=== PATIENT | female | born 1945 | race Caucasian/White ===

== ENCOUNTER 2016-12-28 05:44 | Observation (INO) | payer MEDICARE, OTHER ==
[~2016-12-28] VITALS: Ht 160 cm; Wt 79.0 kg
[~2016-12-28 05:44] MED LIST: AMLO10TA2 PO; BYSTOLIC2.5 MG PO; CRESTOR20 MG PO; GABA600T2 PO; METF10002 PO; SITA100T PO; VALS40TA2 PO
[2016-12-28] MEDS ORDERED: IV RINGERS,LACTATED 1000ML 1,000 ML IV SCH (06:15)
[2016-12-28] MEDS ORDERED: FENTANYL PF 100 MCG/2 ML VIAL. IV PRN ×2 (06:15→10:15)
[2016-12-28] MEDS ORDERED: ONDANSETRON PF 4 MG/2 ML VIAL. IV ONE (06:15)
--- NOTE | 2016-12-28 06:18 | ED.ADGEN ---
Adult General Chief Complaint Chief Complaint: DIARRHEA HPI HPI Patient is a 71 year old woman, history of hypertension and type 2 diabetes mellitus, who presents to the emergency department with a complaint of abdominal pain and loose watery stool 1 week. Patient states that initially the stool was greenish in color, now she states it is "just water", is experiencing 5-7 episodes of stool daily, along with cramping abdominal pain, and nausea. No vomiting, denies any fevers, any chills, any chest pain, shortness breath, any recent travel, any history of surgery, any recent antibiotic use or exposures. No similar symptoms in the family members. Patient states she saw her doctor on Thursday, that time was prescribed Imodium, which she has been taking once daily, without relief. Has been compliant with her medications. Denies any injuries or other complaints. Review of Systems Review of Systems Constitutional: Denies fever or chills. [] Eyes: Denies change in visual acuity. [] HENT: Denies nasal congestion or sore throat. [] Respiratory: Denies cough or shortness of breath. [] Cardiovascular: Denies chest pain or edema. [] GI: Abdominal pain, cramping, located in the epigastrium to the lower quadrants , associated nausea, diarrhea, no bloody stools or emesis. : Denies dysuria. [] Musculoskeletal: Denies back pain or joint pain. [] Integument: Denies rash. [] Neurologic: Denies headache, focal weakness or sensory changes. [] Endocrine: Denies polyuria or polydipsia. [] Lymphatic: Denies swollen glands. [] Psychiatric: Denies depression or anxiety. [] Current Medications Current Medications Current Medications Medications (Trade) Dose Ordered Sig/Osbaldo Start Time Stop Time Status Last Admin Dose Admin Fentanyl Citrate 25 mcg 25 mcg PRN Q15MIN PRN 12/28/16 06:15 12/29/16 06:14 Info (Do NOT chart on this entry -- for MONITORING) 1 each PRN DAILY PRN 12/28/16 07:15 12/30/16 07:14 Iohexol (Omnipaque 300 Mg/ml) 75 ml 1X ONCE 12/28/16 07:15 12/28/16 07:16 DC 12/28/16 07:15 75 ML Lactated Ringer's (Iv Lactated Ringers) 1,000 ml @ 100 mls/hr Q10H 12/28/16 06:15 12/28/16 16:14 12/28/16 07:48 100 MLS/HR Ondansetron HCl (Zofran) 4 mg 1X ONCE 12/28/16 06:15 12/28/16 06:16 DC 12/28/16 07:51 4 MG Allergies Allergies Allergies Coded Allergies Type Severity Reaction Last Updated Verified No Known Drug Allergies 05/12/16 No Physical Exam Physical Exam Constitutional: Well developed, well nourished, no acute distress, non-toxic appearance. [] HENT: Normocephalic, atraumatic, bilateral external ears normal, oropharynx moist, no oral exudates, nose normal. [] Eyes: PERRLA, EOMI, conjunctiva normal, no discharge. [] Neck: Normal range of motion, no tenderness, supple, no stridor. [] Cardiovascular:Heart rate regular rhythm, no murmur , S1, S2, no rubs or gallops. [] Lungs & Thorax: Bilateral breath sounds clear to auscultation, no wheezing, rhonchi, rales. No chest tenderness or crepitus. [] Abdomen: Bowel sounds normal, soft, diffuse tenderness to palpation, no rebound , rigidity, no guarding, no masses, no pulsatile masses. [] Skin: Warm, dry, no erythema, no rash. [] Back: No tenderness, no CVA tenderness. [] Extremities: No tenderness, no cyanosis, no clubbing, ROM intact, no edema. [] Neurologic: Alert and oriented X 3, normal motor function, normal sensory function, no focal deficits noted. [] Psychologic: Affect normal, judgement normal, mood normal. [] Current Patient Data Vital Signs Vital Signs Date Time Temp Pulse Resp B/P Pulse Ox O2 Delivery O2 Flow Rate FiO2 12/28/16 09:15 66 24 120/57 96 12/28/16 08:10 Room Air 12/28/16 06:00 97.5 97.5 Lab Values Laboratory Tests Test 12/28/16 07:16 12/28/16 07:22 Urine Collection Type Unknown Urine Color Yellow Urine Clarity Clear Urine pH 6.0 Urine Specific [place] 1.025 Urine Protein Negativemg/dL (NEG-TRACE) Urine Glucose (UA) Negativemg/dL (NEG) Urine Ketones (Stick) Negativemg/dL (NEG) Urine Blood Negative (NEG) Urine Nitrite Negative (NEG) Urine Bilirubin Small (NEG) Urine Urobilinogen Dipstick 0.2mg/dL (0.2 mg/dL) Urine Leukocyte Esterase Moderate (NEG) Urine RBC 0/HPF (0-2) Urine WBC 11-20/HPF (0-4) Urine Bacteria 0/HPF (0-FEW) Urine Hyaline Casts Many/HPF Urine Mucus Marked/LPF White Blood Count 10.9x10^3/uL (4.0-11.0) Red Blood Count 4.74x10^6/uL (3.50-5.40) Hemoglobin 14.1g/dL (12.0-15.5) Hematocrit 42.6% (36.0-47.0) Mean Corpuscular Volume 90fL (79-100) Mean Corpuscular Hemoglobin 30pg (25-35) Mean Corpuscular Hemoglobin Concent 33g/dL (31-37) Red Cell Distribution Width 12.9% (11.5-14.5) Platelet Count 174x10^3/uL (140-400) Neutrophils (%) (Auto) 65% (31-73) Lymphocytes (%) (Auto) 21% (24-48) L Monocytes (%) (Auto) 9% (0-9) Eosinophils (%) (Auto) 4% (0-3) H Basophils (%) (Auto) 1% (0-3) Neutrophils # (Auto) 7.1x10^3uL (1.8-7.7) Lymphocytes # (Auto) 2.3x10^3/uL (1.0-4.8) Monocytes # (Auto) 1.0x10^3/uL (0.0-1.1) Eosinophils # (Auto) 0.4x10^3/uL (0.0-0.7) Basophils # (Auto) 0.1x10^3/uL (0.0-0.2) Sodium Level 142mmol/L (136-145) Potassium Level 3.7mmol/L (3.5-5.1) Chloride Level 103mmol/L (98-107) Carbon Dioxide Level 25mmol/L (21-32) Anion Gap 14 (6-14) Blood Urea Nitrogen 14mg/dL (7-20) Creatinine 0.7mg/dL (0.6-1.0) Estimated GFR (Cockcroft-Gault) 83.0 BUN/Creatinine Ratio 20 (6-20) Glucose Level 137mg/dL (70-99) H Lactic Acid Level 2.4mmol/L (0.4-2.0) H Calcium Level 8.8mg/dL (8.5-10.1) Total Bilirubin 0.4mg/dL (0.2-1.0) Aspartate Amino Transferase (AST) 40U/L (15-37) H Alanine Aminotransferase (ALT) 62U/L (14-59) H Alkaline Phosphatase 77U/L (46-116) Total Protein 7.5g/dL (6.4-8.2) Albumin 3.9g/dL (3.4-5.0) Albumin/Globulin Ratio 1.1 (1.0-1.7) Lipase 109U/L (73-393) Laboratory Tests 12/28/16 07:22 Laboratory Tests 12/28/16 07:22 EKG EKG EC: Sinus rhythm, heart rate 69 beats minute, left axis deviation, QTC of 477, DE 138, QRS of 90, no ST elevations or depressions, abnormal ECG as stated, no evidence of ST elevation NH. As interpreted by me. Radiology/Procedures Radiology/Procedures [] [facility] [address] [place] [address] IMAGING REPORT Signed PATIENT: NADIR ZHENG ACCOUNT: [id number] : 1945 LOCATION: ER AGE: 71 SEX: F EXAM STATUS: REG ER ORD. PHYSICIAN: GERMAIN MARIANO DO REASON: Abd pain/diarrhea x 1 week PROCEDURE: CT ABD PELV W/ IV CONTRST ONLY CT study of the abdomen and pelvis with contrast Clinical indications: Abdominal pain and diarrhea for one week. Abdominal pain is on the left side. Comparison: None available. Technique: After IV infusion of 75 cc of Omnipaque 300, helical CT scanning of the abdomen and pelvis was performed. No GI contrast was administered. This may decrease the sensitivity to detect GI tract pathology. PQRS Compliance Statement: One or more of the following individualized dose reduction techniques were utilized for this examination: 1. Automated exposure control 2. Adjustment of the mA and/or kV according to patient size 3. Use of iterative reconstruction technique Findings: Diffuse fatty infiltration of the liver is seen. The spleen and pancreas and gallbladder are normal. No extra hepatic biliary ductal dilatation is seen. No adrenal mass is evident. Both kidneys are normal without hydronephrosis or hydroureter. Urinary bladder is not abnormally distended. No uterine mass is seen. No dominant ovarian cyst or mass is seen. No focal aneurysmal dilatation of the abdominal aorta is seen. No enlarged abdominal or pelvic lymphadenopathy is seen. No obstructive bowel pattern is seen. There are no CT findings of appendicitis. No bowel wall thickening is seen. The terminal ileum is unremarkable. No free air or free fluid or inflammatory change is evident. No lung base consolidation is seen. Mild cardiomegaly is evident. No osteolytic process is seen. IMPRESSION: No acute abnormality of the abdomen or pelvis is seen. Mild cardiomegaly. DICTATED and SIGNED BY: YOSVANY CERON MD DATE: 12/28/16822 CC: GERMAIN MARIANO DO; MERCEDES HOFF MD ~ Course & Med Decision Making Course & Med Decision Making Pertinent Labs and Imaging studies reviewed. (See chart for details) Patient with tenderness diffusely, appears uncomfortable and ED. IV fluids, pain medication, antiemetics initiated in the ED. Due to duration of symptoms and severity, CT of abdomen and pelvis to be obtained. Laboratory studies also obtained. Reveal evidence of mild lactic acidosis, with a lactic of 2.4, electrolytes within normal limits, no leukocytosis or shift. CT does not reveal any evidence of acutely abnormal findings. Discussed with patient, she continues to have pain and episodes of diarrhea in the emergency department. Stool culture sent along with C. difficile. After discussion, with patient's lactic acidosis, continued discomfort and episodes of diarrhea in the ED, patient is agreeable for admission to the hospital for evaluation by GI, continued IV fluids and symptom management. Findings as above discussed with Dr. Hoff of the patient's primary care provider, patient accepted to her service as an observation admission, with consultation for GI placed, bridge orders entered per discussion. Patient remained stable in the ED for her course , transferred to the floor without issue. Dragon Disclaimer Dragon Disclaimer This electronic medical record was generated, in whole or in part, using a voice recognition dictation system. Departure Impression: Primary Impression: Abdominal pain Additional Impressions: Lactic acidosis Diarrhea Disposition: ADMITTED INPATIENT Admitting Physician: Mercedes Hoff Condition: IMPROVED Problem Qualifiers GERMAIN MARIANO DO Dec 28, 2016 06:18
[2016-12-28] MEDS ORDERED: CONTRAST GIVEN MC PRN (07:15)
[2016-12-28] MEDS ORDERED: IOHEXOL 300 MG/ML 75 ML VIAL IV ONE (07:15)
[2016-12-28 07:25] LABS: BILIRUBIN,URINE SMALL (NEG); GLUCOSE,URINE NEGATIVE (NEG); NITRITE,URINE NEGATIVE (NEG); PROTEIN,URINE NEGATIVE (NEG-TRACE); UROBILINOGEN,URINE 0.2 mg/dL (0.2 mg/dL)
[2016-12-28 07:34] LABS: BACTERIA,URINE 0 /HPF (0-FEW); RBC,URINE 0 /HPF (0-2)
[2016-12-28 07:47] LABS: CALCIUM 8.8 mg/dL (8.5-10.1); CREATININE 0.7 mg/dL (0.6-1.0); POTASSIUM 3.7 mmol/L (3.5-5.1)
[2016-12-28 07:50] LABS: BASO # 0.1 x10^3/uL (0.0-0.2); BASO % 1 % (0-3); EOS % 4 % (0-3); HEMATOCRIT 42.6 % (36.0-47.0); HEMOGLOBIN 14.1 g/dL (12.0-15.5); LYMPH # 2.3 x10^3/uL (1.0-4.8); LYMPH % 21 % (24-48); MEAN CORPUSCULAR HEMOGLOBIN 30 pg (25-35); MEAN CORPUSCULAR HGB CONC 33 g/dL (31-37); MEAN CORPUSCULAR VOLUME 90 fL (79-100); MONO % 9 % (0-9); NEUT % 65 % (31-73); PLATELET COUNT 174 x10^3/uL (140-400); RED BLOOD COUNT 4.74 x10^6/uL (3.50-5.40); RED CELL DISTRIBUTION WIDTH 12.9 % (11.5-14.5); WHITE BLOOD COUNT 10.9 x10^3/uL (4.0-11.0)
[2016-12-28 07:53] LABS: ALBUMIN 3.9 g/dL (3.4-5.0); ALBUMIN/GLOBULIN RATIO 1.1 (1.0-1.7); TOTAL BILIRUBIN 0.4 mg/dL (0.2-1.0); TOTAL PROTEIN 7.5 g/dL (6.4-8.2)
--- NOTE | 2016-12-28 08:40 | RAD ---
CT study of the abdomen and pelvis with contrast Clinical indications: Abdominal pain and diarrhea for one week. Abdominal pain is on the left side. Comparison: None available. Technique: After IV infusion of 75 cc of Omnipaque 300, helical CT scanning of the abdomen and pelvis was performed. No GI contrast was administered. This may decrease the sensitivity to detect GI tract pathology. PQRS Compliance Statement: One or more of the following individualized dose reduction techniques were utilized for this examination: 1. Automated exposure control 2. Adjustment of the mA and/or kV according to patient size 3. Use of iterative reconstruction technique Findings: Diffuse fatty infiltration of the liver is seen. The spleen and pancreas and gallbladder are normal. No extra hepatic biliary ductal dilatation is seen. No adrenal mass is evident. Both kidneys are normal without hydronephrosis or hydroureter. Urinary bladder is not abnormally distended. No uterine mass is seen. No dominant ovarian cyst or mass is seen. No focal aneurysmal dilatation of the abdominal aorta is seen. No enlarged abdominal or pelvic lymphadenopathy is seen. No obstructive bowel pattern is seen. There are no CT findings of appendicitis. No bowel wall thickening is seen. The terminal ileum is unremarkable. No free air or free fluid or inflammatory change is evident. No lung base consolidation is seen. Mild cardiomegaly is evident. No osteolytic process is seen. IMPRESSION: No acute abnormality of the abdomen or pelvis is seen. Mild cardiomegaly.
[2016-12-28] MEDS ORDERED: ONDANSETRON PF 4 MG/2 ML VIAL. IV PRN (10:15)
[2016-12-28] MEDS ORDERED: ACETAMINOPHEN 325 MG TABLET. PO PRN (10:15)
[2016-12-28] MEDS ORDERED: DEXTROSE 50% 25 GM / 50ML DISP.SYRIN. IV PRN (10:15)
[2016-12-28] MEDS ORDERED: NEBI5TAB3 PO (10:37)
[2016-12-28] MEDS ORDERED: LOPE1TAB4 PO (10:37)
[2016-12-28] MEDS ORDERED: VALS1TAB31 PO (10:37)
[2016-12-28] MEDS ORDERED: SERT50TA8 PO (10:37)
[2016-12-28] MEDS ORDERED: OMEP40CA5 PO (10:37)
[2016-12-28] MEDS: IV NORMAL SALINE 1000ML BAG 1,000 ML IV SCH ×2 (10:48→18:14)
[2016-12-28] MEDS: INSULIN ASPART 300 UNITS/3 ML INSULN.PEN SQ SCH ×2 (11:58→16:48)
--- NOTE | 2016-12-28 12:40 | EKG ---
[facility] [address] [place] [address] Test Date: 2016-12-28 Test Time: 06:54:23 Pat Name: NADIR ZHENG Department: Room: Gender: F [employer] Florist: SHERRY : 1945 Requested By: GERMAIN MARIANO Order Number: [id number] Reading MD: Measurements Intervals [place] Rate: 69 P: 30 NE: 138 QRS: -14 QRSD: 90 T: 3 QT: 444 QTc: 477 Interpretive Statements SINUS RHYTHM LEFTWARD AXIS PROLONGED QT NO SPECIFIC ECG ABNORMALITIES RI6.01 No previous ECG available for comparison
--- NOTE | 2016-12-28 12:53 | PDOC2 ---
CONSULT Date of Consult Date of Consult DATE: 12/28/16 TIME: 12:50 Reason for Consult Reason for Consult: abd pain/diarrhea Current Problem List Problem List Problems Medical Problems: (1) Abdominal pain Status: Acute (2) Diarrhea Status: Acute (3) Lactic acidosis Status: Acute Current Medications Current Medications Current Medications Fentanyl Citrate 25 mcg 25 mcg PRN Q15MIN PRN IV PAIN GREATER THAN 3/10; Start 12/28/16 at 06:15; Stop 12/29/16 at 06:14 Lactated Ringer's (Iv Lactated Ringers) 1,000 ml @ 100 mls/hr Q10H IV Last administered on 12/28/16 07:48; Start 12/28/16 at 06:15; Stop 12/28/16 at 16:14 Ondansetron HCl (Zofran) 4 mg 1X ONCE IV Last administered on 12/28/16 07:51; Start 12/28/16 at 06:15; Stop 12/28/16 at 06:16; Status DC Iohexol (Omnipaque 300 Mg/ml) 75 ml 1X ONCE IV Last administered on 12/28/16 07:15; Start 12/28/16 at 07:15; Stop 12/28/16 at 07:16; Status DC Info (Do NOT chart on this entry -- for MONITORING) 1 each PRN DAILY PRN MC SEE COMMENTS; Start 12/28/16 at 07:15; Stop 12/30/16 at 07:14 Ondansetron HCl (Zofran) 4 mg PRN Q8HRS PRN IV NAUSEA/VOMITING; Start 12/28/16 at 10:15; Stop 12/29/16 at 10:14 Fentanyl Citrate 50 mcg 50 mcg PRN Q1HR PRN IV PAIN; Start 12/28/16 at 10:15; Stop 12/29/16 at 10:14 Sodium Chloride (Iv Sodium Chloride 0.9% 1000ml Bag) 1,000 ml @ 125 mls/hr Q8H IV Last administered on 12/28/16 10:48; Start 12/28/16 at 10:11; Stop 12/29/16 at 10:10 Acetaminophen (Tylenol) 650 mg PRN Q4HRS PRN PO FEVER; Start 12/28/16 at 10:15; Stop 12/29/16 at 10:14 Insulin Aspart (Novolog) 0-5 UNITS TIDWMEALS SQ ; Start 12/28/16 at 12:00 Dextrose (Dextrose 50%-Water Syringe) 12.5 gm PRN Q15MIN PRN IV SEE COMMENTS; Start 12/28/16 at 10:15 Active Scripts Active Reported Imodium Multi-Symptom Rel Cplt (Loperamide Hcl/Simethicone) 1 Each Tablet 1 Each PO PRN PRN Bystolic (Nebivolol HCl) 5 Mg Tablet 5 Mg PO DAILY Valsartan-Hctz 320-12.5 Mg Tab (Valsartan/Hydrochlorothiazide) 1 Each Tablet 1 Tab PO DAILY Sertraline Hcl 50 Mg Tablet 50 Mg PO DAILY Omeprazole 40 Mg Capsule.dr 40 Mg PO DAILY Gabapentin 600 Mg Tablet 600 Mg PO BID Januvia (Sitagliptin Phosphate) 100 Mg Tablet 100 Mg PO DAILY Metformin Hcl 1,000 Mg Tablet 1,000 Mg PO [id number] Crestor (Rosuvastatin Calcium) 20 Mg Tablet 20 Mg PO HS Amlodipine Besylate 10 Mg Tablet 10 Mg PO DAILY Allergies Allergies: Coded Allergies: No Known Drug Allergies (Unverified , 05/12/16) Vitals VITALS Vital Signs Date Time Temp Pulse Resp B/P Pulse Ox O2 Delivery O2 Flow Rate FiO2 12/28/16 09:45 66 22 116/55 94 12/28/16 08:10 Room Air 12/28/16 06:00 97.5 97.5 Labs Labs Laboratory Tests Test 12/28/16 07:16 12/28/16 07:22 12/28/16 11:40 12/28/16 11:50 Urine Collection Type Unknown Urine Color Yellow Urine Clarity Clear Urine pH 6.0 Urine Specific [place] 1.025 Urine Protein Negativemg/dL (NEG-TRACE) Urine Glucose (UA) Negativemg/dL (NEG) Urine Ketones (Stick) Negativemg/dL (NEG) Urine Blood Negative (NEG) Urine Nitrite Negative (NEG) Urine Bilirubin Small (NEG) Urine Urobilinogen Dipstick 0.2mg/dL (0.2 mg/dL) Urine Leukocyte Esterase Moderate (NEG) Urine RBC 0/HPF (0-2) Urine WBC 11-20/HPF (0-4) Urine Bacteria 0/HPF (0-FEW) Urine Hyaline Casts Many/HPF Urine Mucus Marked/LPF White Blood Count 10.9x10^3/uL (4.0-11.0) Red Blood Count 4.74x10^6/uL (3.50-5.40) Hemoglobin 14.1g/dL (12.0-15.5) Hematocrit 42.6% (36.0-47.0) Mean Corpuscular Volume 90fL (79-100) Mean Corpuscular Hemoglobin 30pg (25-35) Mean Corpuscular Hemoglobin Concent 33g/dL (31-37) Red Cell Distribution Width 12.9% (11.5-14.5) Platelet Count 174x10^3/uL (140-400) Neutrophils (%) (Auto) 65% (31-73) Lymphocytes (%) (Auto) 21% (24-48) Monocytes (%) (Auto) 9% (0-9) Eosinophils (%) (Auto) 4% (0-3) Basophils (%) (Auto) 1% (0-3) Neutrophils # (Auto) 7.1x10^3uL (1.8-7.7) Lymphocytes # (Auto) 2.3x10^3/uL (1.0-4.8) Monocytes # (Auto) 1.0x10^3/uL (0.0-1.1) Eosinophils # (Auto) 0.4x10^3/uL (0.0-0.7) Basophils # (Auto) 0.1x10^3/uL (0.0-0.2) Sodium Level 142mmol/L (136-145) Potassium Level 3.7mmol/L (3.5-5.1) Chloride Level 103mmol/L (98-107) Carbon Dioxide Level 25mmol/L (21-32) Anion Gap 14 (6-14) Blood Urea Nitrogen 14mg/dL (7-20) Creatinine 0.7mg/dL (0.6-1.0) Estimated GFR (Cockcroft-Gault) 83.0 BUN/Creatinine Ratio 20 (6-20) Glucose Level 137mg/dL (70-99) Lactic Acid Level 2.4mmol/L (0.4-2.0) 1.0mmol/L (0.4-2.0) Calcium Level 8.8mg/dL (8.5-10.1) Total Bilirubin 0.4mg/dL (0.2-1.0) Aspartate Amino Transf (AST/SGOT) 40U/L (15-37) Alanine Aminotransferase (ALT/SGPT) 62U/L (14-59) Alkaline Phosphatase 77U/L (46-116) Total Protein 7.5g/dL (6.4-8.2) Albumin 3.9g/dL (3.4-5.0) Albumin/Globulin Ratio 1.1 (1.0-1.7) Lipase 109U/L (73-393) Glucose (Fingerstick) 105mg/dL (70-99) Laboratory Tests Test 12/28/16 07:16 12/28/16 07:22 12/28/16 11:40 12/28/16 11:50 Urine Collection Type Unknown Urine Color Yellow Urine Clarity Clear Urine pH 6.0 Urine Specific [place] 1.025 Urine Protein Negativemg/dL (NEG-TRACE) Urine Glucose (UA) Negativemg/dL (NEG) Urine Ketones (Stick) Negativemg/dL (NEG) Urine Blood Negative (NEG) Urine Nitrite Negative (NEG) Urine Bilirubin Small (NEG) Urine Urobilinogen Dipstick 0.2mg/dL (0.2 mg/dL) Urine Leukocyte Esterase Moderate (NEG) Urine RBC 0/HPF (0-2) Urine WBC 11-20/HPF (0-4) Urine Bacteria 0/HPF (0-FEW) Urine Hyaline Casts Many/HPF Urine Mucus Marked/LPF White Blood Count 10.9x10^3/uL (4.0-11.0) Red Blood Count 4.74x10^6/uL (3.50-5.40) Hemoglobin 14.1g/dL (12.0-15.5) Hematocrit 42.6% (36.0-47.0) Mean Corpuscular Volume 90fL (79-100) Mean Corpuscular Hemoglobin 30pg (25-35) Mean Corpuscular Hemoglobin Concent 33g/dL (31-37) Red Cell Distribution Width 12.9% (11.5-14.5) Platelet Count 174x10^3/uL (140-400) Neutrophils (%) (Auto) 65% (31-73) Lymphocytes (%) (Auto) 21% (24-48) Monocytes (%) (Auto) 9% (0-9) Eosinophils (%) (Auto) 4% (0-3) Basophils (%) (Auto) 1% (0-3) Neutrophils # (Auto) 7.1x10^3uL (1.8-7.7) Lymphocytes # (Auto) 2.3x10^3/uL (1.0-4.8) Monocytes # (Auto) 1.0x10^3/uL (0.0-1.1) Eosinophils # (Auto) 0.4x10^3/uL (0.0-0.7) Basophils # (Auto) 0.1x10^3/uL (0.0-0.2) Sodium Level 142mmol/L (136-145) Potassium Level 3.7mmol/L (3.5-5.1) Chloride Level 103mmol/L (98-107) Carbon Dioxide Level 25mmol/L (21-32) Anion Gap 14 (6-14) Blood Urea Nitrogen 14mg/dL (7-20) Creatinine 0.7mg/dL (0.6-1.0) Estimated GFR (Cockcroft-Gault) 83.0 BUN/Creatinine Ratio 20 (6-20) Glucose Level 137mg/dL (70-99) Lactic Acid Level 2.4mmol/L (0.4-2.0) 1.0mmol/L (0.4-2.0) Calcium Level 8.8mg/dL (8.5-10.1) Total Bilirubin 0.4mg/dL (0.2-1.0) Aspartate Amino Transf (AST/SGOT) 40U/L (15-37) Alanine Aminotransferase (ALT/SGPT) 62U/L (14-59) Alkaline Phosphatase 77U/L (46-116) Total Protein 7.5g/dL (6.4-8.2) Albumin 3.9g/dL (3.4-5.0) Albumin/Globulin Ratio 1.1 (1.0-1.7) Lipase 109U/L (73-393) Glucose (Fingerstick) 105mg/dL (70-99) Assessment/Plan Assessment/Plan Abd pain- with diarrhea, etiology to be determined. Differential includes: new onset IBD, infectious enteritis, partial SBO, chronic pancreatitis, and/or mesenteric ischemia. Plan stool studies sb series and/or cta for vascular evaluation if pain/diarrhea persist possible trial of pancreatic enzymes if above unhelpful Full note dictated DORA DENNY MD Dec 28, 2016 12:53
[2016-12-28] MEDS: LOSARTAN POTASSIUM 50 MG TABLET. PO SCH (14:00)
[2016-12-28] MEDS: METOPROLOL TART IMMED RELEASE 25 MG TABLET. PO SCH ×3 (14:00→21:00)
[2016-12-28] MEDS: AMLODIPINE BESYLATE 10 MG TABLET. PO SCH (14:00)
[2016-12-28] MEDS: GABAPENTIN 300 MG CAPSULE. PO SCH ×3 (14:00→21:00)
[2016-12-28] MEDS ORDERED: LOPERAMIDE 2 MG CAPSULE PO PRN (14:15)
[2016-12-28 15:00] VITALS: BP 129/72
--- NOTE | 2016-12-28 15:31 | PDOC ---
OBJECTIVE Vital Signs Vital Signs Date Time Temp Pulse Resp B/P Pulse Ox O2 Delivery O2 Flow Rate FiO2 12/28/16 09:45 66 22 116/55 94 12/28/16 09:15 66 24 120/57 96 12/28/16 08:45 66 16 116/58 96 12/28/16 08:10 68 16 125/61 95 Room Air 12/28/16 07:15 70 21 137/71 95 12/28/16 06:00 97.5 76 20 135/77 96 Room Air 97.5 ASSESSMENT/PLAN Assessment/Plan 555239 H&P dictated Problems: COMMENT Lab Laboratory Tests Test 12/28/16 07:16 12/28/16 07:22 12/28/16 11:40 12/28/16 11:50 Urine Collection Type Unknown Urine Color Yellow Urine Clarity Clear Urine pH 6.0 Urine Specific [place] 1.025 Urine Protein Negativemg/dL (NEG-TRACE) Urine Glucose (UA) Negativemg/dL (NEG) Urine Ketones (Stick) Negativemg/dL (NEG) Urine Blood Negative (NEG) Urine Nitrite Negative (NEG) Urine Bilirubin Small (NEG) Urine Urobilinogen Dipstick 0.2mg/dL (0.2 mg/dL) Urine Leukocyte Esterase Moderate (NEG) Urine RBC 0/HPF (0-2) Urine WBC 11-20/HPF (0-4) Urine Bacteria 0/HPF (0-FEW) Urine Hyaline Casts Many/HPF Urine Mucus Marked/LPF Clostridium difficile Toxin (PCR) Negative (Negative) White Blood Count 10.9x10^3/uL (4.0-11.0) Red Blood Count 4.74x10^6/uL (3.50-5.40) Hemoglobin 14.1g/dL (12.0-15.5) Hematocrit 42.6% (36.0-47.0) Mean Corpuscular Volume 90fL (79-100) Mean Corpuscular Hemoglobin 30pg (25-35) Mean Corpuscular Hemoglobin Concent 33g/dL (31-37) Red Cell Distribution Width 12.9% (11.5-14.5) Platelet Count 174x10^3/uL (140-400) Neutrophils (%) (Auto) 65% (31-73) Lymphocytes (%) (Auto) 21% (24-48) Monocytes (%) (Auto) 9% (0-9) Eosinophils (%) (Auto) 4% (0-3) Basophils (%) (Auto) 1% (0-3) Neutrophils # (Auto) 7.1x10^3uL (1.8-7.7) Lymphocytes # (Auto) 2.3x10^3/uL (1.0-4.8) Monocytes # (Auto) 1.0x10^3/uL (0.0-1.1) Eosinophils # (Auto) 0.4x10^3/uL (0.0-0.7) Basophils # (Auto) 0.1x10^3/uL (0.0-0.2) Sodium Level 142mmol/L (136-145) Potassium Level 3.7mmol/L (3.5-5.1) Chloride Level 103mmol/L (98-107) Carbon Dioxide Level 25mmol/L (21-32) Anion Gap 14 (6-14) Blood Urea Nitrogen 14mg/dL (7-20) Creatinine 0.7mg/dL (0.6-1.0) Estimated GFR (Cockcroft-Gault) 83.0 BUN/Creatinine Ratio 20 (6-20) Glucose Level 137mg/dL (70-99) Lactic Acid Level 2.4mmol/L (0.4-2.0) 1.0mmol/L (0.4-2.0) Calcium Level 8.8mg/dL (8.5-10.1) Total Bilirubin 0.4mg/dL (0.2-1.0) Aspartate Amino Transf (AST/SGOT) 40U/L (15-37) Alanine Aminotransferase (ALT/SGPT) 62U/L (14-59) Alkaline Phosphatase 77U/L (46-116) Total Protein 7.5g/dL (6.4-8.2) Albumin 3.9g/dL (3.4-5.0) Albumin/Globulin Ratio 1.1 (1.0-1.7) Lipase 109U/L (73-393) Glucose (Fingerstick) 105mg/dL (70-99) MERCEDES HOFF MD Dec 28, 2016 15:31
--- NOTE | 2016-12-28 15:56 | PREOP HP ---
DATE OF SERVICE: 12/28/2016 HISTORY OF PRESENT ILLNESS: The patient is in room 580. She is a 71-year-old lady who has been seen in the office twice last week due to abdominal pain, diarrhea, nausea, but no vomiting. She was diagnosed with gastroenteritis and was instructed to take omeprazole 40 mg daily for her gastritis and use Imodium as needed for diarrhea. She was also asked to stop her metformin until she is not having any diarrhea. She has been on that medication for a long time, but to avoid lactic acidosis with dehydration, she also was instructed to increase p.o. fluid and follow a bland diet and eat banana. She apparently continues to have a problem with the diarrhea and decided to come to the Emergency Room. She was evaluated in the Emergency Room and was found to have lactic acid level and dehydration. She was admitted for GI consultation, IV hydration and further evaluation. The patient denies any travel recently outside of the [facility]. She denies vomiting. She denies fever or chills, no shortness of breath. She has not had any antibiotics lately. There are no other symptoms and any other family members, but her symptoms started after eating [place] ____ on Thursday of last week. Her and her ate different thinks on that day. She described the diarrhea as watery, greenish and she is having 5-7 episodes daily. She denies melena or hematochezia. PAST MEDICAL HISTORY: Significant for diabetes mellitus, hypertension, and hyperlipidemia. No history of inflammatory bowel disease or peptic ulcer disease. REVIEW OF SYSTEMS: CONSTITUTIONAL: She denies fever or chills. No visual changes. HEENT: No nasal congestion. RESPIRATORY: No shortness of breath. CARDIOVASCULAR: No chest pain. GASTROINTESTINAL: As mentioned above, abdominal cramping, diarrhea and nausea, no vomiting. GENITOURINARY: Denies dysuria. MUSCULOSKELETAL: Denies back pain or joint pain. NEUROLOGIC: Denies any focal deficit and no headache. DERMATOLOGY: Denies rash. PHYSICAL EXAMINATION: GENERAL: She is alert and oriented, in no acute distress. HEENT: Tympanic membranes clear. Pharynx is clear. No sinus tenderness. Mucous membranes are slightly dry. EYES: Without discoloration in conjunctivae. There is no discharge. NECK: Supple. HEART: Regular rate and rhythm. ABDOMEN: Soft, diffuse tenderness to palpation in the abdomen. No organomegaly, no masses, no bruits, no ascites. SKIN: Warm and dry. EXTREMITIES: No edema, clubbing or cyanosis. NEUROLOGICAL: Intact with no deficit. IMPRESSION: 1. Gastroenteritis. 2. Lactic acidosis due to gastroenteritis and medication. 3. Diabetes mellitus type 2. 4. Hypertension. The patient is admitted for hydration. Follow lactic acid and gastrointestinal consultation. MERCEDES HOFF MD DR: EMANI/zoran JOB#: [id number] / [id number]
[2016-12-28] MEDS: PANTOPRAZOLE 40 MG TABLET.DR. PO SCH (16:30)
[2016-12-28 19:00] VITALS: BP 140/65
[2016-12-28] MEDS: SERTRALINE 50 MG TABLET. PO SCH (20:53)
[2016-12-28] MEDS: HYDROCHLOROTHIAZIDE 12.5 MG CAPSULE. PO SCH (20:54)
[2016-12-28] MEDS ORDERED: ATORVASTATIN CALCIUM 40 MG TABLET. PO SCH (21:00)
[2016-12-28 23:19] VITALS: BP 106/46
--- NOTE | 2016-12-29 00:21 | CONS ---
DATE OF CONSULTATION: 12/28/2016 REASON FOR CONSULTATION: Diarrhea and abdominal pain. HISTORY OF PRESENT ILLNESS: A 71-year-old female whose past medical history is significant for diabetes and osteoarthritis, is admitted with worsening abdominal pain and diarrhea for the past week. Stools have been nonbloody in nature, colonoscopy 2 months ago was unrevealing. No family history of inflammatory bowel disease and had no ____ antibiotics. Well water consumption is elicited. CT scan was unrevealing for significant pathology, although she did have mild lactic acidosis and stool cultures have been ordered to assess for infectious pathogens. No ____ is presently ill. She is feeling presently better today with hydration. PAST MEDICAL HISTORY: Hypertension and diabetes. ALLERGIES: None. MEDICATIONS: Include insulin. SOCIAL HISTORY: Does not drink or smoke. FAMILY HISTORY: Noncontributory. REVIEW OF SYSTEMS: HEENT: There is no decrease in visual acuity. CARDIAC: There is history of hypertension. ENDOCRINE: History of diabetes. PULMONARY: No shortness of breath ____ asthma. HEMATOLOGIC: No bleeding, bruising, or coagulopathy. MUSCULOSKELETAL: History of osteoarthrosis. GASTROINTESTINAL: See history of present illness. PHYSICAL EXAMINATION: GENERAL: Reveals a well-nourished, well-developed female. VITAL SIGNS: Temperature is 97.5, pulse 66, respiration is 22, and blood pressure is 116/55. HEENT: Normocephalic and atraumatic head. Pupils and extraocular muscles not tested. Sclerae anicteric. NECK: Supple. LUNGS: Clear. CARDIOVASCULAR: Reveals an S1, S2 without S3, S4 or appreciable murmur. ABDOMEN: Soft abdomen, normal bowel sounds. Mild diffuse tenderness. EXTREMITIES: Reveals no cyanosis, clubbing, or edema. LABORATORY STUDIES: Sodium 142, potassium 3.7, chloride 103, bicarbonate 25, BUN 14, creatinine 0.7, glucose is 137, lactic acid is 2.4, now is 1.0, total bilirubin is 0.4, AST of 40, ALT of 60, alkaline phosphatase 77, total protein 7.5, albumin 3.9, and lipase 109. CT scan of the abdomen and pelvis reveals fatty liver. No focal aneurysm of the aorta. No obstruction, no evidence of appendicitis, no bowel wall thickening. IMPRESSION: Diarrhea, abdominal pain, etiology is to return infectious colitis, new onset of inflammatory bowel disease, mesenteric ischemia with 1%, diabetes, hypertension and/or partial small-bowel obstruction from ____ ventral hernia. Certainly, the differential therefore recommend stool cultures, fluids, analgesics. Consider the CT angiogram was a small bowel series to further assess the symptoms. Pending her clinical course as prior colonoscopies were performed. I would like to thank Dr. Coon for allowing us to consult and participate in this patient's care. DORA DENNY MD DR: JABARI/zoran JOB#: [id number] / [id number]
[2016-12-29] MEDS: IV NORMAL SALINE 1000ML BAG 1,000 ML IV SCH (01:12)
[2016-12-29 05:01] LABS: BASO % 0 % (0-3); EOS % 5 % (0-3); HEMATOCRIT 36.2 % (36.0-47.0); HEMOGLOBIN 12.1 g/dL (12.0-15.5); LYMPH # 2.4 x10^3/uL (1.0-4.8); LYMPH % 29 % (24-48); MEAN CORPUSCULAR HEMOGLOBIN 30 pg (25-35); MEAN CORPUSCULAR HGB CONC 33 g/dL (31-37); MEAN CORPUSCULAR VOLUME 90 fL (79-100); MONO % 9 % (0-9); NEUT % 56 % (31-73); PLATELET COUNT 144 x10^3/uL (140-400); RED BLOOD COUNT 4.03 x10^6/uL (3.50-5.40); RED CELL DISTRIBUTION WIDTH 12.8 % (11.5-14.5); WHITE BLOOD COUNT 8.4 x10^3/uL (4.0-11.0)
[2016-12-29 05:15] LABS: ALBUMIN 2.9 g/dL (3.4-5.0); CALCIUM 7.6 mg/dL (8.5-10.1); CREATININE 0.7 mg/dL (0.6-1.0); TOTAL BILIRUBIN 0.5 mg/dL (0.2-1.0); TOTAL PROTEIN 5.9 g/dL (6.4-8.2)
[2016-12-29 05:20] LABS: POTASSIUM 2.5 mmol/L (3.5-5.1)
[2016-12-29] MEDS: POTASSIUM CL 40MEQ IN 0.9%NACL 1,000 ML IV SCH ×2 (05:30→13:30)
[2016-12-29] MEDS: POTASSIUM CHLORIDE 10MEQ 100 ML IV SCH ×4 (05:50→09:19)
[2016-12-29 07:00] VITALS: BP 136/70
[2016-12-29] MEDS: INSULIN ASPART 300 UNITS/3 ML INSULN.PEN SQ SCH ×2 (08:00→11:35)
--- NOTE | 2016-12-29 08:14 | RAD ---
Abdominal ultrasound, 12/28/2016: History: Elevated liver function studies The gallbladder is within normal limits in size. It contains a small amount of echogenic material without posterior acoustic shadowing. The appearance is that of biliary sludge. No gallstones are seen. The gallbladder wall is not thickened. No bile duct dilatation is evident. The hepatic echogenicity is increased compatible with fatty change. No hepatic mass is identified. The visualized portions of the pancreas, spleen and both kidneys are unremarkable. The abdominal aorta is of normal caliber. There are scattered atherosclerotic plaques. The inferior vena cava is unremarkable. No free fluid is evident in the abdomen. IMPRESSION: 1. Small amount of sludge in the gallbladder without evidence of cholelithiasis. 2. Increased hepatic echogenicity compatible with hepatic steatosis.
[2016-12-29] MEDS ORDERED: LINAGLIPTIN 5 MG TABLET PO SCH (09:00)
[2016-12-29] MEDS: HYDROCHLOROTHIAZIDE 12.5 MG CAPSULE. PO SCH (09:12)
[2016-12-29] MEDS: METOPROLOL TART IMMED RELEASE 25 MG TABLET. PO SCH (09:13)
[2016-12-29] MEDS: AMLODIPINE BESYLATE 10 MG TABLET. PO SCH (09:14)
[2016-12-29] MEDS: GABAPENTIN 300 MG CAPSULE. PO SCH (09:14)
[2016-12-29] MEDS: SERTRALINE 50 MG TABLET. PO SCH (09:14)
[2016-12-29] MEDS: LOSARTAN POTASSIUM 50 MG TABLET. PO SCH (09:15)
[2016-12-29] MEDS: PANTOPRAZOLE 40 MG TABLET.DR. PO SCH (09:17)
--- NOTE | 2016-12-29 10:12 | PDOC ---
SUBJECTIVE Subjective feels better , diarhea is better, K+ low is replacing OBJECTIVE Vital Signs Vital Signs Date Time Temp Pulse Resp B/P Pulse Ox O2 Delivery O2 Flow Rate FiO2 12/29/16 09:15 65 136/70 12/29/16 09:14 65 136/70 12/29/16 09:13 65 136/70 12/29/16 07:00 97.7 65 16 136/70 92 Room Air 97.7 12/29/16 03:23 Room Air 12/28/16 23:19 97.7 67 18 106/46 95 Room Air 97.7 12/28/16 21:00 72 140/65 12/28/16 19:47 Room Air 12/28/16 19:00 96.6 72 16 140/65 95 Room Air 96.6 12/28/16 15:00 98.2 67 16 129/72 95 Room Air 98.2 I & O Intake and Output 12/29/16 07:00 Intake Total 1200 ml Output Total 300 ml Balance 900 ml Intake Oral 1200 ml Output Urine Total 300 ml # Voids 2 PHYSICAL EXAM Physical Exam exam normal ASSESSMENT/PLAN Assessment/Plan home today after done with K+ supplement f/u out pt Problems: COMMENT Lab Laboratory Tests Test 12/28/16 11:40 12/28/16 11:50 12/28/16 16:38 12/28/16 20:44 Glucose (Fingerstick) 105mg/dL (70-99) 101mg/dL (70-99) 105mg/dL (70-99) Lactic Acid Level 1.0mmol/L (0.4-2.0) Test 12/29/16 04:20 12/29/16 07:26 White Blood Count 8.4x10^3/uL (4.0-11.0) Red Blood Count 4.03x10^6/uL (3.50-5.40) Hemoglobin 12.1g/dL (12.0-15.5) Hematocrit 36.2% (36.0-47.0) Mean Corpuscular Volume 90fL (79-100) Mean Corpuscular Hemoglobin 30pg (25-35) Mean Corpuscular Hemoglobin Concent 33g/dL (31-37) Red Cell Distribution Width 12.8% (11.5-14.5) Platelet Count 144x10^3/uL (140-400) Neutrophils (%) (Auto) 56% (31-73) Lymphocytes (%) (Auto) 29% (24-48) Monocytes (%) (Auto) 9% (0-9) Eosinophils (%) (Auto) 5% (0-3) Basophils (%) (Auto) 0% (0-3) Neutrophils # (Auto) 4.7x10^3uL (1.8-7.7) Lymphocytes # (Auto) 2.4x10^3/uL (1.0-4.8) Monocytes # (Auto) 0.8x10^3/uL (0.0-1.1) Eosinophils # (Auto) 0.4x10^3/uL (0.0-0.7) Basophils # (Auto) 0.0x10^3/uL (0.0-0.2) Sodium Level 146mmol/L (136-145) Potassium Level 2.5mmol/L (3.5-5.1) Chloride Level 109mmol/L (98-107) Carbon Dioxide Level 28mmol/L (21-32) Anion Gap 9 (6-14) Blood Urea Nitrogen 9mg/dL (7-20) Creatinine 0.7mg/dL (0.6-1.0) Estimated GFR (Cockcroft-Gault) 83.0 BUN/Creatinine Ratio 13 (6-20) Glucose Level 145mg/dL (70-99) Calcium Level 7.6mg/dL (8.5-10.1) Total Bilirubin 0.5mg/dL (0.2-1.0) Aspartate Amino Transf (AST/SGOT) 20U/L (15-37) Alanine Aminotransferase (ALT/SGPT) 38U/L (14-59) Alkaline Phosphatase 55U/L (46-116) Total Protein 5.9g/dL (6.4-8.2) Albumin 2.9g/dL (3.4-5.0) Albumin/Globulin Ratio 1.0 (1.0-1.7) Glucose (Fingerstick) 123mg/dL (70-99) MERCEDES HOFF MD Dec 29, 2016 10:12
[2016-12-29 10:46] VITALS: BP 125/68
[2016-12-29 14:49] VITALS: BP 116/58
--- NOTE | 2016-12-30 10:04 | PDOC3 ---
Discharge Summary* Date of Admission: Dec 28, 2016 Date of Discharge: Dec 30, 2016 Admitting Diagnosis Problems Medical Problems: (1) Abdominal pain Status: Acute (2) Diarrhea Status: Acute (3) Lactic acidosis Status: Acute Final Diagnosis 1. Gastroenteritis. 2. Lactic acidosis due to gastroenteritis and medication. 3. Diabetes mellitus type 2. 4. Hypertension. 5-dehydration due to diarrhea 6-hypokalemia replaced Problems Medical Problems: (1) Abdominal pain Status: Acute (2) Diarrhea Status: Acute (3) Lactic acidosis Status: Acute CONSULTS GI Procedures CT abdomen Brief Hospital Course Ms. Yanez is a 71 old [sex] who presented with [ ] Disposition/Orders: D/C to Home CONDITION AT DISCHARGE: Improved Diet: Cardiac, Consistent Carbohydrate Scheduled Amlodipine Besylate (Amlodipine Besylate) 10 MG PO DAILY (Reported) Gabapentin (Gabapentin) 600 MG PO BID (Reported) Nebivolol HCl (Bystolic) 5 MG PO DAILY (Reported) Omeprazole (Omeprazole) 40 MG PO DAILY (Reported) Rosuvastatin Calcium (Crestor) 20 MG PO HS (Reported) Sertraline Hcl (Sertraline Hcl) 50 MG PO DAILY (Reported) Sitagliptin Phosphate (Januvia) 100 MG PO DAILY (Reported) Valsartan/Hydrochlorothiazide (Valsartan-Hctz 320-12.5 Mg Tab) 1 TAB PO DAILY ( Reported) Scheduled PRN Loperamide Hcl/Simethicone (Imodium Multi-Symptom Rel Cplt) 1 EACH PO PRN PRN PRN DIARRHEA (Reported) Discontinued Medications Metformin Hcl (Metformin Hcl) 1,000 MG PO DAILYWBKFT (Reported) FOLLOW UP APPOINTMENT: Dr. Hoff 1 week recheck electrolytes Time Spent Total time spent with patient [] minutes for coordination of care, counseling, and education. MERCEDES HOFF MD Dec 30, 2016 10:03
== END 2016-12-29 15:50 | disposition home or self-care (01) ==
LOC: ER 05:44 → 5 SOUTH 09:18
PROVIDERS: ADMIT Internal Medicine; ATTEND Internal Medicine
DX: K52.9 Noninfective gastroenteritis and colitis, unspecified (principal); E87.2 Acidosis; E11.9 Type 2 diabetes mellitus without complications; I11.9 Hypertensive heart disease without heart failure; E78.5 Hyperlipidemia, unspecified; E87.6 Hypokalemia; E86.0 Dehydration; I51.7 Cardiomegaly; K29.70 Gastritis, unspecified, without bleeding; Z79.899 Other long term (current) drug therapy
CPT/HCPCS: 36415; 74177; 76700; 80053; 81001; 82947; 83605; 83690; 85027; 87045; 87086; 87324; 93005; 96361; 96365; 96366; 96375; 99285; G0378; J1815; J2405; J3480; J7030; Q9967; G0379; J7120

== ENCOUNTER → 2017-06-05 | Outpatient (CLI) | payer OTHER ==
[~2017-06-05] MED LIST changes: +LOPE1TAB4 PO; +METF-620 PO; -METF10002 PO; +NEBI5TAB3 PO; +OMEP40CA5 PO; +SERT50TA8 PO; +VALS1TAB31 PO
--- NOTE | 2017-06-08 12:16 | KCIC ---
DATE: 06/05/2017 EXAM: MAMMO LYNN SCREENING BILATERAL HISTORY: Routine screening COMPARISON: 05/30/2016 The breast parenchyma shows scattered fibroglandular densities. Breast parenchyma level B. FINDINGS: 2-D and 3-D tomosynthesis imaging was performed in CC and MLO projections. The fibroglandular densities are slightly asymmetric being greater in the upper right breast compared to the left. No new or enlarging breast densities are seen. There is a benign-appearing lymph node type density in the right axillary region. No suspicious microcalcifications are evident. IMPRESSION: There is no mammographic evidence of malignancy in either breast. BI-RADS CATEGORY: 2 BENIGN FINDING(S) RECOMMENDED FOLLOW-UP: 12M 12 MONTH FOLLOW-UP PQRS compliance statement: Patient information was entered into a reminder system with a target due date for the next mammogram. Mammography is a sensitive method for finding small breast cancers, but it does not detect them all and is not a substitute for careful clinical examination. A negative mammogram does not negate a clinically suspicious finding and should not result in delay in biopsying a clinically suspicious abnormality. "Our facility is accredited by the [employer] Mammography Program."
== END | disposition home or self-care (01) ==
LOC: KCIC MAMMO 13:30
PROVIDERS: ATTEND Internal Medicine
DX: Z12.31 Encounter for screening mammogram for malignant neoplasm of breast (principal)
CPT/HCPCS: 77063; G0202; 77067

== ENCOUNTER → 2018-06-22 | Outpatient (CLI) | payer OTHER ==
[~2018-06-22] MED LIST changes: -AMLO10TA2 PO; +AMLO10TA6 PO; -METF-620 PO; +METF10007 PO
--- NOTE | 2018-06-22 18:24 | KCIC ---
Bilateral digital screening mammograms with 3-D tomosynthesis: Reason for examination: Routine screening. Comparison is made to previous 06/05/2017 and 05/30/2016. Bilateral mammograms in CC and oblique projections were obtained with 2-D imaging and 3-D tomosynthesis imaging on a Siemens Inspiration unit and reviewed on the workstation. Interpretation was made with the benefit of CAD. The skin and nipples show no abnormalities. No abnormal axillary lymph nodes are seen. The breast parenchyma shows scattered fatty and fibroglandular density. (Breast density: Category B.) There continues to be some nodular asymmetric parenchyma anterior superiorly in the right breast which is unchanged. There is also some nodularity anteriorly in the left breast which is unchanged. There are no new dominant masses, suspicious calcifications or architectural distortion. Impression: No evidence of malignancy. Recommend routine screening. BI-RAD Category 2: Benign. "Our facility is accredited by the [employer] Mammography Program." This patient's information has been entered into a reminder system for the patient to be notified with the results of her examination and a target date for the next mammogram. Electronically signed by: Bianca Denson MD (06/22/2018 6:20 PM) [id number]
== END | disposition home or self-care (01) ==
LOC: KCIC MAMMO 13:02
PROVIDERS: ATTEND Family Medicine
DX: Z12.31 Encounter for screening mammogram for malignant neoplasm of breast (principal); I11.9 Hypertensive heart disease without heart failure; E78.5 Hyperlipidemia, unspecified; E87.6 Hypokalemia; E11.9 Type 2 diabetes mellitus without complications
CPT/HCPCS: 77063; 77067

== ENCOUNTER → 2019-07-15 | Outpatient (CLI) | payer OTHER ==
[~2019-07-15] MED LIST changes: -AMLO10TA6 PO; +AMLO10TA8 PO; -GABA600T2 PO; +GABA600T7 PO; +OMEP40CA45 PO; -OMEP40CA5 PO
--- NOTE | 2019-07-15 17:26 | KCIC ---
Bilateral digital screening mammograms with 3-D tomosynthesis: Reason for examination: Routine screening. Comparison is made to previous studies dated 06/22/2018 and 06/05/2017. Bilateral mammograms in CC and oblique projections were obtained with 2-D imaging and 3-D tomosynthesis imaging on a Siemens Inspiration unit and reviewed on the workstation. Interpretation was made with the benefit of CAD. The skin and nipples show no abnormalities. No abnormal axillary lymph nodes are seen. The breast parenchyma shows scattered fatty and fibroglandular density. (Breast density: Category B.) There are nodular parenchymal densities bilaterally which are unchanged. There are no new dominant masses, suspicious calcifications or architectural distortion. Impression: No evidence of malignancy. Recommend routine screening. BI-RAD Category 2: Benign. "Our facility is accredited by the [employer] Mammography Program." This patient's information has been entered into a reminder system for the patient to be notified with the results of her examination and a target date for the next mammogram. Electronically signed by: Bianca Denson MD (07/15/2019 5:23 PM) [id number]
== END | disposition home or self-care (01) ==
LOC: KCIC MAMMO 12:44
PROVIDERS: ATTEND Family Medicine
DX: Z12.31 Encounter for screening mammogram for malignant neoplasm of breast (principal)
CPT/HCPCS: 77063; 77067